=== PATIENT | female | born 1945 | race Caucasian/White ===

== ENCOUNTER → 2020-05-24 | Day surgery (SDC) | payer OTHER ==
[~2020-05-24] VITALS: Ht 165.1 cm; Wt 58.1 kg
[~2020-05-24] MED LIST: ALPRAZOLAM 0.50.5 M1 PO; ATENOLOL 100MG100 MG PO; CILOSTAZOL 100100 M1 PO; ESCITALOPRAM OX10 MG PO; GABAPENTIN 100100 MG PO; IPRAT-ALBUT 0.5-3 ML; LEVOTHYROXINE75 MCG PO; NIFEDIPINE ER30 M1 PO; NORCO 10-325 T1 EACH PO; VITAMIN D3125 MC1 PO; XARELTO15 MG PO
--- NOTE | ~2020-05-24 | O ---
[facility] [place] [address] OPERATIVE REPORT Name: ISABEL YAN I Room #: REG [facility].#: [id number] Admission: 05/24/20 Attend Phys: Rizwan Grant MD Discharge: Date of : 45 Report #: [id number] THIS REPORT FOR: cc: Weston Petit,Weston Grant,Rizwan Hancock MD ~ CC: Kiel Grant DATE OF SERVICE: 05/24/2020 PREOPERATIVE DIAGNOSIS: Graves' disease. POSTOPERATIVE DIAGNOSIS: Graves' disease. PROCEDURE: Left lateral orbital decompression with temporary tarsorrhaphy. SURGEON: Rizwan Grant M.D. MACHINE CUTTER: Jagdish Carlson M.D. ANESTHESIA: General. COMPLICATIONS: None. ESTIMATED BLOOD LOSS: 25 mL. INDICATIONS FOR SURGERY: This pleasant 74-year-old woman with Graves' disease and proptosis has a history of recurrent globe subluxation bilaterally. She presents today for a combined endoscopic and medial wall and floor orbital decompression done in conjunction with a transcutaneous lateral orbital decompression of the left eye with temporary tarsorrhaphy. Informed consent was obtained to include but not limited to the risk for loss of vision, double vision, bleeding, infection, failure to improve the problem, scarring, the potential need for further surgery including surgery for double vision. The procedure is being done in order to reduce her risk for irreversible permanent loss of vision. DESCRIPTION OF OPERATION: The patient was taken to the operating room, where general anesthesia was administered. The lateral upper lid was then [facility] [address] [place] [address] OPERATIVE REPORT Name: ISABEL YAN I Room #: REG [facility]..#: [id number] Admission: 05/24/20 Attend Phys: Rizwan Grant MD Discharge: Date of : 45 Report #: [id number] anesthetized with 2% Xylocaine with epinephrine mixed with equal parts of 0.75% Marcaine with Wydase. The infratemporal fossa was then anesthetized with the same anesthetic mixture. The patient was subsequently prepped and draped in the usual sterile fashion. Dr. Carlson prepared the nose with vasoconstrictive-soaked Cottonoids and intranasal mucosal injections. The patient received intravenous Decadron and antibiotics at the beginning of the procedure. After being sterilely prepped and draped, a temporary tarsorrhaphy was fashioned from a short section of IV tubing and a double-armed 5-0 nylon suture. It was placed at the junction of the medial 2/3 and the 1/3 of the eyelid. The transnasal portion of the procedure was then resumed. After the transnasal, endoscopic, medial wall and floor, and orbital decompression had been accomplished and the nose repacked with vasoconstrictive-soaked Cottonoids, the extended upper lid crease incision was reanesthetized. The Cottonoids were removed and the periosteum was opened to allow the fat transnasally to decompress into the newly created space. The nose was then repacked and gloves were changed and instruments switched out as the lateral orbital decompression was commenced. A curvilinear incision was initially outlined and then made with a 15-C blade, extending a lid crease incision into the infratemporal fossa. The dissection was then carried down to periosteum with the Huntingdon needle, obtaining hemostasis with diligent monopolar cautery. The periosteum was then sharply incised and then gently reflected medially out of the lateral orbit. The zygomatic facial and zygomatic temporal neurovascular bundles were identified and cauterized as they were encountered. The orbital contents were then retracted and protected with the malleable retractor as the skin from the inferior portion of the wound was protected with a skin rake. A 3.5-mm cutting/irrigating drill was then used to thin the bone at the lateral orbit. The anterior limit of the dissection was the lateral orbital rim. The superior and inferior limits of the dissection were the orbital roof and floor respectively. Hemostasis was reachieved with monopolar cautery and judicious use of bone wax. The periosteum of the lateral orbit was then incised with the Huntingdon needle. A large H-shaped flap in the periosteum was then created, allowing the fat to billow out into the newly created space. The periosteum was then closed with interrupted buried 5-0 Vicryl sutures. The subcutaneous structures were closed with interrupted 5-0 Vicryl sutures. The skin was then closed with 6-0 plain gut sutures. The wound was dressed with erythromycin ointment followed by Telfa pad. The temporary nasal packing was removed and absorbable nasal pack placed. [address] [address] OPERATIVE REPORT Name: ISABEL YAN I Room #: REG [facility].#: [id number] Admission: 05/24/20 Attend Phys: Rizwan Grant MD Discharge: Date of : 45 Report #: [id number] The patient was subsequently transported to the recovery area, having tolerated the procedure well with no anesthetic or operative complications being noted. By: 1732 1822 Rizwan Grant MD /nt
--- NOTE | ~2020-05-24 | O ---
[facility] [place] [address] OPERATIVE REPORT Name: ISABEL YAN I Room #: REG [facility].#: [id number] Admission: 05/24/20 Attend Phys: Rizwan Grant MD Discharge: Date of : 45 Report #: [id number] THIS REPORT FOR: cc: Weston Petit,Weston Carlson,Jagdish Graf MD ~ CC: Radha Grant DATE OF SERVICE: 05/24/2020 PREOPERATIVE DIAGNOSIS: Graves' disease. POSTOPERATIVE DIAGNOSIS: Graves' disease. OPERATIVE PROCEDURE: Left endoscopic medial and inferior orbital wall decompression in conjunction with a lateral transcutaneous decompression and tarsorrhaphy. SURGEONS: Dr. Jagdish Carlson and Dr. Grant. ANESTHESIA: General by laryngeal mask. DESCRIPTION OF PROCEDURE: The patient was taken to the operating room and placed in supine position. General anesthesia was induced by laryngeal mask. Once adequate general anesthesia was obtained, local nasal anesthesia was induced by submucoperiosteal injection of 1% lidocaine with 1:100,000 epinephrine and topical application of cocaine solution. The patient was then prepared and draped in a sterile manner. The nasal endoscope was used to visualize the left nasal cavity and the middle turbinate was deviated medially. The uncinate process was removed using the microdebrider and the natural opening maxillary sinus was located. It was enlarged in a posterior inferior manner by removing the soft fontanelle. An ethmoidectomy was performed by removing the ethmoidal bulla and then following the ethmoid air cells back to and through the basal lamella and then forward along the lamina papyracea and fovea ethmoidalis to complete the ethmoidectomy anteriorly. The lamina papyracea bone was exposed from the anterior face of the sphenoid posteriorly to the fovea ethmoidalis superiorly to the root of the uncinate process anteriorly and into the maxillary sinus inferiorly. Using a blunt tipped seeker instrument, the bone was slowly chipped away to expose the underlying periorbita. The periorbita was then incised with 2 horizontal incisions, one superiorly, one inferiorly. They were then connected in the middle and the orbital fat was allowed to prolapse into the ethmoid cavity. A rolled piece of Merogel was placed between the middle turbinate and lateral wall of the nose to prevent scarring and to promote [address] [address] OPERATIVE REPORT Name: ISABEL YAN I Room #: REG [facility]..#: [id number] Admission: 05/24/20 Attend Phys: Rizwan Grant MD Discharge: Date of : 45 Report #: [id number] hemostasis. At this point, Dr. Grant performed a lateral transcutaneous decompression and tarsorrhaphy. Estimated blood loss for the procedure was 25 mL. The patient was then awoken and taken to the recovery room in stable condition for postoperative monitoring. By: 1733 1742 Jagdish Carlson MD /ina
[2020-05-24 14:42] LABS: HEMATOCRIT 43.1 % (37.0-47.0); HEMOGLOBIN 14.6 gm/dL (12.0-15.0); MCH 30.7 pg (26.0-34.0); MCHC 33.9 g/dL (28.0-37.0); MCV 90.8 fL (80.0-100.0); RBC 4.75 mil/uL (4.20-5.00); WBC 9.3 thou/uL (4.0-11.0)
== END | disposition home or self-care (01) ==
LOC: OR 09:55
PROVIDERS: ATTEND Ophthalmology
DX: E05.00 Thyrotoxicosis with diffuse goiter without thyrotoxic crisis or storm (principal); I10 Essential (primary) hypertension; E78.00 Pure hypercholesterolemia, unspecified; J43.9 Emphysema, unspecified; E03.9 Hypothyroidism, unspecified; F17.210 Nicotine dependence, cigarettes, uncomplicated; F32.9 Major depressive disorder, single episode, unspecified; F41.9 Anxiety disorder, unspecified; I73.9 Peripheral vascular disease, unspecified; Z98.890 Other specified postprocedural states; Z79.899 Other long term (current) drug therapy; Z91.041 Radiographic dye allergy status; Z88.8 Allergy status to other drugs, medicaments and biological substances
CPT/HCPCS: 50010; 50101; 50386; 50398; 50573; 51636; 53635; 55340; 56528; 56531; 56635; 57246; 62110; 62900; 70005

== ENCOUNTER → 2020-06-21 | Day surgery (SDC) | payer OTHER ==
[~2020-06-21] VITALS: Ht 165.1 cm; Wt 58.1 kg
--- NOTE | ~2020-06-21 | O ---
[facility] [place] [address] OPERATIVE REPORT Name: ISABEL YAN I Room #: REG [facility] [place] [place] M..#: [id number] Admission: 06/21/20 Attend Phys: Rizwan Grant MD Discharge: Date of : 45 Report #: [id number] THIS REPORT FOR: cc: Weston Petit,Weston Grant,Rizwan Hancock MD ~ CC: Jagdish Blake DATE OF SERVICE: 06/21/2020 PREOPERATIVE DIAGNOSIS: Graves' disease. POSTOPERATIVE DIAGNOSIS: Graves' disease. PROCEDURE: Right lateral orbit decompression with temporary tarsorrhaphy. SURGEON: Rizwan Grant MD. SAP PORTAL ARCHITECT: Jagdish Carlson MD ANESTHESIA: General. COMPLICATIONS: None. INDICATIONS FOR SURGERY: This pleasant 75-year-old woman with Graves' disease, has profound proptosis with globe subluxation. She presents today for an endoscopic medial wall and floor orbital decompression done in conjunction with a transcutaneous lateral orbital decompression and temporary tarsorrhaphy to attempt to preserve her vision and globe. Informed consent was obtained to include but not limited to the potential risk for loss of vision, double vision, bleeding, infection, failure to improve the problem, scarring, and the potential need for further surgery including surgery for double vision. DESCRIPTION OF OPERATION: The patient was taken to the operating room, where general anesthesia was administered. The lateral upper lid was then anesthetized with 2% Xylocaine with epinephrine mixed with equal parts of 0.75% Marcaine with Wydase. The infratemporal fossa was then anesthetized with the same anesthetic mixture. The patient was subsequently prepped and draped in the usual sterile fashion. Dr. Carlson prepared the nose with vasoconstrictive-soaked Cottonoids and intranasal mucosal injections. The patient received intravenous Decadron and antibiotics at the beginning of the [facility] [address] [place] [address] OPERATIVE REPORT Name: YURIYISABEL I Room #: REG [facility]#: [id number] Admission: 06/21/20 Attend Phys: Rizwan Grant MD Discharge: Date of : 45 Report #: [id number] procedure. After being sterilely prepped and draped, a temporary tarsorrhaphy was fashioned from a short section of IV tubing and a double-armed 5-0 nylon suture. It was placed at the junction of the medial 2/3 and the 1/3 of the eyelid. The transnasal portion of the procedure was then resumed. After the transnasal, endoscopic, medial wall and floor, and orbital decompression had been accomplished and the nose repacked with vasoconstrictive-soaked Cottonoids, the extended upper lid crease incision was reanesthetized. The Cottonoids were removed and the periosteum was opened to allow the fat transnasally to decompress into the newly created space. The nose was then repacked and gloves were changed and instruments switched out as the lateral orbital decompression was commenced. A curvilinear incision was initially outlined and then made with a 15-C blade, extending a lid crease incision into the infratemporal fossa. The dissection was then carried down to periosteum with the Carter needle, obtaining hemostasis with diligent monopolar cautery. The periosteum was then sharply incised and then gently reflected medially out of the lateral orbit. The zygomatic facial and zygomatic temporal neurovascular bundles were identified and cauterized as they were encountered. The orbital contents were then retracted and protected with the malleable retractor as the skin from the inferior portion of the wound was protected with a skin rake. A 3.5-mm cutting/irrigating drill was then used to thin the bone at the lateral orbit. The anterior limit of the dissection was the lateral orbital rim. The superior and inferior limits of the dissection were the orbital roof and floor respectively. Hemostasis was reachieved with monopolar cautery and judicious use of bone wax. The periosteum of the lateral orbit was then incised with the Carter needle. A large H-shaped flap in the periosteum was then created, allowing the fat to billow out into the newly created space. The periosteum was then closed with interrupted buried 5-0 Vicryl sutures. The subcutaneous structures were closed with interrupted 5-0 Vicryl sutures. The skin was then closed with 6-0 plain gut sutures. The wound was dressed with erythromycin ointment followed by Telfa pad. The temporary nasal packing was removed and absorbable nasal pack placed. The patient was subsequently transported to the recovery area, having tolerated the procedure well with no anesthetic or operative complications being noted. By: 1721 1733 Rizwan Garnt MD /nt
[2020-06-21 14:48] VITALS: BP 157/68
--- NOTE | 2020-06-21 17:36 | O ---
[facility] [place] [address] OPERATIVE REPORT Name: ISABEL YAN I Room #: REG [facility]..#: [id number] Admission: 06/21/20 Attend Phys: Rizwan Grant MD Discharge: Date of : 45 Report #: [id number] THIS REPORT FOR: cc: Weston Petit,Weston Carlson,Jagdish Graf MD ~ CC: Jagdish Grant DATE OF SERVICE: 06/21/2020 PREOPERATIVE DIAGNOSIS: Graves' disease. POSTOPERATIVE DIAGNOSIS: Graves' disease. OPERATIVE PROCEDURE: Right endoscopic medial and inferior orbital wall decompression in conjunction with a lateral transcutaneous decompression and tarsorrhaphy. SURGEONS: Dr. Carlson and Dr. Grant. ANESTHESIA: General by laryngeal mask. DESCRIPTION OF PROCEDURE: The patient was taken to the operating room and placed in supine position. General anesthesia was induced by laryngeal mask. Once adequate general anesthesia was obtained, local nasal anesthesia was induced by submucoperiosteal injection of 1% lidocaine with 1:100,000 epinephrine and topical application of cocaine solution. The patient was then prepared and draped in a sterile manner. The nasal endoscope was used to visualize the right nasal cavity and the middle turbinate was deviated medially. The uncinate process was removed using the microdebrider and the natural opening of the maxillary sinus was located. It was enlarged in a posterior inferior manner by removing the soft fontanelle. An ethmoidectomy was performed by removing the ethmoidal bulla and then following the ethmoid air cells back to and through the basal lamella and then forward along the lamina papyracea and fovea ethmoidalis to complete the ethmoidectomy anteriorly. The lamina papyracea bone was exposed from the anterior face of the sphenoid posteriorly to the fovea ethmoidalis superiorly to the root of the uncinate process anteriorly and into the maxillary sinus inferiorly. Using a blunt tipped seeker instrument, the bone was slowly chipped away to expose the underlying periorbita. The periorbita was then incised in 2 horizontal incisions, one superiorly, one inferiorly. They were then connected in the middle and the orbital fat was allowed to prolapse into the ethmoid cavity. A piece of Merogel was rolled and placed into the ethmoid cavity and middle meatus for hemostasis. At this point, Dr. Grant performed a lateral transcutaneous decompression and [facility] [address] [place] [address] OPERATIVE REPORT Name: ISABEL YAN I Room #: [id number] Admission: 06/21/20 Attend Phys: Rizwan Grant MD Discharge: Date of : 45 Report #: [id number] tarsorrhaphy. At the conclusion of the procedure, the patient was then awoken and taken to the recovery room in stable condition for postoperative monitoring. Blood loss for the procedure was 25 mL. <ELECTRONICALLY SIGNED> By: Jagdish Carlson MD 06/21/20 1736 [id number] Jagdish Carlson MD /ina
--- NOTE | 2020-06-21 17:36 | H ---
[facility] [place] [address] HISTORY AND PHYSICAL Name: ISABEL YAN I Room #: REG [facility] M.R.#: [id number] Admission: 06/21/20 Attend Phys: Rizwan Grant MD Discharge: Date of : 45 Report #: [id number] THIS REPORT FOR: cc: Weston Petit,Weston Carlson,Jagdish Graf MD ~ CC: Jagdish Grant DATE OF SERVICE: 06/21/2020 Her procedure is scheduled for 06/21/2020. HISTORY OF PRESENT ILLNESS: The patient has Graves' disease with severe proptosis. She has had subluxation of her globe on multiple occasions on both sides. She has a very severe cataract on the right side and has difficulty seeing. She would like to have cataract surgery. A CT scan of her orbits show severe proptosis on both sides with normal appearing sinuses. She underwent a left orbital decompression on 05/24/2020 and she is scheduled for her right sided procedure. PAST MEDICAL HISTORY: Otherwise, significant for high blood pressure, kidney disease, COPD, previous stroke, previous pancreatic cancer, previous lung cancer. MEDICATIONS: Include atenolol, Lexapro, Synthroid, Xanax, Xarelto. ALLERGIES: She is allergic to ZOFRAN and STATINS. PHYSICAL EXAMINATION: Her nose was clear. Her oropharynx and oral cavity were normal. IMPRESSION: Graves' disease. PLAN: Right endoscopic medial and inferior orbital wall decompression in conjunction with a lateral transcutaneous decompression and tarsorrhaphy with Dr. Grant. <ELECTRONICALLY SIGNED> By: Jagdish Carlson MD 06/21/20 1736 [id number] Jagdish Carlson MD /nt
== END | disposition home or self-care (01) ==
LOC: OR
PROVIDERS: ATTEND Ophthalmology
DX: E05.00 Thyrotoxicosis with diffuse goiter without thyrotoxic crisis or storm (principal); I10 Essential (primary) hypertension; J44.9 Chronic obstructive pulmonary disease, unspecified; N28.9 Disorder of kidney and ureter, unspecified; Z98.890 Other specified postprocedural states; Z79.899 Other long term (current) drug therapy; Z86.73 Personal history of transient ischemic attack (TIA), and cerebral infarction without residual deficits; Z85.118 Personal history of other malignant neoplasm of bronchus and lung; Z85.07 Personal history of malignant neoplasm of pancreas; Z88.8 Allergy status to other drugs, medicaments and biological substances
CPT/HCPCS: 50010; 50101; 50386; 50398; 50573; 51636; 53635; 55340; 56528; 56531; 56635; 57246; 62110; 62900; 64037; 70005